=== PATIENT | female | born 1990 | race Caucasian/White ===

== ENCOUNTER 2020-07-04 23:44 | Inpatient (IN) ==
[2020-07-05] MEDS ORDERED: Lidocaine 1% 20 ML MDV INFILT PRN (00:21)
[2020-07-05] MEDS ORDERED: Famotidine 20 MG/2 ML VIAL IVP PRN (00:21)
[2020-07-05] MEDS ORDERED: Metoclopramide 10 MG/2 ML VIAL IVP PRN (00:21)
[2020-07-05] MEDS ORDERED: Naloxone 0.4 MG/ML INJ IVP PRN (00:21)
[2020-07-05 01:23] LABS: Basophils % 0.2 %; Eosinophils % 0.3 %; Hematocrit 32.3 % (35.3-44.9); Immature Granulocytes % 0.4 % (0-4); Lymphocytes # 1.5 K/mcL (0.6-4.6); Lymphocytes % 14.7 %; Mean Corpuscular HGB Conc 34.1 g/dL (31.6-35.5); Mean Corpuscular Hemoglobin 30.9 pg (28.0-33.3); Mean Corpuscular Volume 90.7 fL (83.0-100.0); Mean Platelet Volume 12.8 fL (9.4-12.4); Monocytes # 0.7 K/mcL (0.0-1.3); Neutrophils # 7.7 K/mcL (1.6-8.9); Platelet Count 258 K/mcL (140-400); Red Blood Count 3.56 M/mcL (3.82-4.97); Red Cell Distribution Width 13.5 % (11.5-14.5); Segmented Neutrophils % 77.4 %; White Blood Count 9.9 K/mcL (4.3-11.1)
[2020-07-05] MEDS: Ringers Solution, Lactated 1,000 ML IVC SCH ×3 (01:37→20:00)
[2020-07-05] MEDS: miSOPROStoL 25 MCG TABLET PO PRN ×2 (01:37→09:32)
[2020-07-05 01:40] LABS: Amphetamine Screen,Urine Negative ng/mL (Cutoff=1000); Barbiturate Screen,Urine Negative ng/mL (Cutoff=200); Benzodiazepines Screen,Urine Negative ng/mL (Cutoff=200); Cannabinoid Screen,Urine Negative ng/mL (Cutoff = 50); Cocaine Screen,Urine Negative ng/mL (Cutoff= 300); Opiate Screen,Urine Negative ng/mL (Cutoff=300); Phencyclidine Screen,Urine Negative ng/mL (Cutoff=25)
[2020-07-05 02:07] LABS: Adenovirus Not Detected (Not Detect); Bordetella Pertussis Not Detected (Not Detect); Chlamydophila pneumoniae Not Detected (Not Detect); Coronavirus 229E Not Detected (Not Detect); Coronavirus HKU1 Not Detected (Not Detect); Coronavirus NL63 Not Detected (Not Detect); Coronavirus OC43 Not Detected (Not Detect); Human Metapneumovirus Not Detected (Not Detect); Human Rhinovirus/Enterovirus Not Detected (Not Detect); Influenza A Subtype 2009 H1 Not Detected (Not Detect); Influenza B Not Detected (Not Detect); Mycoplasma pneumoniae Not Detected (Not Detect); Parainfluenza Virus 1 Not Detected (Not Detect); Parainfluenza Virus 2 Not Detected (Not Detect); Parainfluenza Virus 3 Not Detected (Not Detect); Parainfluenza Virus 4 Not Detected (Not Detect); Respiratory Syncytial Virus Not Detected (Not Detect); SARS-CoV-2 Not Detected (Not Detect)
[2020-07-05] MEDS ORDERED: Epidural Premix (fent/bupiv) 110 ML EP ONE (06:48)
[2020-07-05] MEDS ORDERED: Ropivacaine/PF 0.2% 20 ML VIAL ONE ×2 (07:38→22:51)
[2020-07-05] MEDS ORDERED: *HR* FentaNYL (PF) 100 MCG/2 ML VIAL ONE (07:38)
[2020-07-05] MEDS ORDERED: *HR* FentaNYL (PF) 100 MCG/2 ML VIAL EP ONE (08:36)
[2020-07-05] MEDS ORDERED: Ropivacaine/PF 0.2% 20 ML VIAL EP ONE (08:36)
[2020-07-05] MEDS ORDERED: EPHEDrine 50 MG/ML VIAL IVP PRN (08:36)
[2020-07-05] MEDS ORDERED: Ondansetron 4 MG/2 ML VIAL IVP ONE (13:58)
[2020-07-05] MEDS ORDERED: Oxytocin 20 units/ LR 1000 mL 20 UNIT/1,000 ML BAG IVC SCH (14:00)
[2020-07-05] MEDS: Epidural Premix (fent/bupiv) 110 ML EP SCH ×2 (14:25→20:46)
[2020-07-05] MEDS ORDERED: *HR* Propofol 200 MG/20 ML VIAL IVP ONE (20:26)
[2020-07-05] MEDS ORDERED: *HR* Succinylcholine 200 MG/10 ML VIAL IVP ONE (20:26)
[2020-07-05] MEDS ORDERED: 0.9 % Sodium Chloride 1,000 ML ONE (23:19)
[2020-07-05] MEDS ORDERED: Lidocaine -MPF 2% 5 ML VIAL ONE (23:56)
[2020-07-06] MEDS: Epidural Premix (fent/bupiv) 110 ML EP SCH (03:30)
[2020-07-06] MEDS ORDERED: Measles/Mumps/Rubella Vacc 0.5 ML VIAL SQ PRN (06:34)
[2020-07-06] MEDS ORDERED: Oxytocin 20 units/ LR 1000 mL 20 UNIT/1,000 ML BAG IVC SCH (06:34)
[2020-07-06] MEDS: Ibuprofen 600 MG TABLET PO PRN ×2 (06:51→16:06)
[2020-07-06] MEDS: Prenatal Vit/FA 1 EACH TABLET PO SCH (08:00)
[2020-07-06] MEDS: Acetaminophen 325 MG TABLET PO PRN ×2 (08:00→18:39)
[2020-07-06] MEDS ORDERED: NON-FORMULARY MEDICATION 1 EACH EACH (Prenatal Vits96/Iron Fum/Folic [Prenatal Tablet] 1 E PO SCH (09:00)
[2020-07-06] MEDS ORDERED: Methylergonovine 0.2 MG/ML AMPUL IM ONE (13:59)
[2020-07-07] MEDS: Ibuprofen 600 MG TABLET PO PRN ×2 (00:39→08:18)
[2020-07-07 05:31] LABS: Basophils % 0.2 %; Eosinophils # 0.2 K/mcL (0.0-0.6); Eosinophils % 1.2 %; Hematocrit 23.1 % (35.3-44.9); Hemoglobin 7.6 g/dL (11.5-15.4); Immature Granulocytes % 0.3 % (0-4); Lymphocytes # 1.6 K/mcL (0.6-4.6); Mean Corpuscular HGB Conc 32.9 g/dL (31.6-35.5); Mean Corpuscular Hemoglobin 30.4 pg (28.0-33.3); Mean Corpuscular Volume 92.4 fL (83.0-100.0); Mean Platelet Volume 12.2 fL (9.4-12.4); Monocytes # 0.9 K/mcL (0.0-1.3); Monocytes % 6.9 %; Neutrophils # 9.9 K/mcL (1.6-8.9); Platelet Count 170 K/mcL (140-400); Segmented Neutrophils % 78.4 %; White Blood Count 12.6 K/mcL (4.3-11.1)
[2020-07-07 08:08] VITALS: BP 117/72
[2020-07-07] MEDS: Prenatal Vit/FA 1 EACH TABLET PO SCH (08:17)
== END 2020-07-07 14:00 | disposition home or self-care (01) | DRG 560 ==
LOC: 1NENULAB 23:44 → 1NENUOBS 07-06 06:33
PROVIDERS: ADMIT Obstetrics & Gynecology; ATTEND Obstetrics & Gynecology